=== PATIENT | female | born 1985 | race Caucasian/White ===

== ENCOUNTER 2017-07-18 09:21 | Emergency (ER) | END 2017-07-18 14:36 | disposition home or self-care (01) | CPT/HCPCS: 36415; 71275; 74174; 76705; 80053; 81003; 81025; 83690; 85025; 93005; 96360; 96361; 99283; 99284; A9270; Q9967 ==

== ENCOUNTER 2020-01-18 11:27 | Emergency (ER) | payer OTHER ==
--- NOTE | 2020-01-18 11:59 | ED Physician Documentation ---
PD HPI CHEST PAIN - Stated complaint Stated Complaint: CHEST PX - Chief complaint Chief Complaint: Cardiac - History obtained from History obtained from: Patient - History of Present Illness Timing - onset: How many days ago (few) Timing - onset during: Light activity Timing - duration: Days (few) Timing - details: Gradual onset, Still present, Waxing and waning Quality: Aching, Sharp Location: Left chest Radiation: No: Neck, Back, Abdominal Improved by: No: Rest, Antacids Worsened by: No: Exertion, Inspiration, Movement, Palpation Associated symptoms: No: Shortness of air, Nausea, Vomiting, Palpitations (Has history of brief SVT episodes, usually respond to Valsalva maneurvers. Has not had that today nor yesterday.) Similar symptoms before: No diagnosis (similar pains at times for a day or so. No Dx.) Review of Systems Constitutional: denies: Fever, Chills Nose: denies: Rhinorrhea / runny nose, Congestion Throat: denies: Sore throat Cardiac: reports: Chest pain / pressure. 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 ) Respiratory: None Neuro: None Endocrine/Autoimmune: None - Past Surgical History Past Surgical History: Yes - Present Medications Home Medications: Ambulatory Orders Medication Instructions Recorded Confirmed Naproxen [EC-Naproxen] 500 mg PO BID #20 tablet. 01/18/20 - Allergies Allergies/Adverse Reactions: Allergies Allergy/AdvReac Type Severity Reaction Status Date / Time No Known Drug Allergies Allergy Verified 07/18/17 09:34 - Living Situation Living Situation: reports: With family Living Arrangement: reports: At home - Social History Does the pt smoke?: Yes Smoking Status: Current every day smoker Does the pt drink ETOH?: Yes Does the pt have substance abuse?: No - Immunizations Immunizations are current?: Yes - POLST Patient has POLST: No PD ED PE NORMAL - Vitals Vital signs reviewed: Yes - General General: Alert and oriented X 3, No acute distress, Well developed/nourished - HEENT HEENT: Pharynx benign - Neck Neck: Supple, no meningeal sign, No adenopathy - Cardiac Cardiac: RRR, No murmur - Respiratory Respiratory: Clear bilaterally, Other (no chestwall tenderness. No rash nor sores. ) - Abdomen Abdomen: Normal bowel sounds, Soft, Non tender, Non distended, No organomegaly - Back Back: No CVA TTP - Derm Derm: Normal color, Warm and dry - Extremities Extremities: No deformity, No tenderness to palpate - Neuro Neuro: Alert and oriented X 3, No motor deficit, Normal speech Results - Vitals Vitals: Vital Signs - 24 hr 01/18/20 01/18/20 01/18/20 11:32 11:44 13:56 Temperature 36.4 C L 37.1 C Heart Rate 65 67 60 Respiratory 16 16 18 Rate Blood Pressure 151/73 H 124/74 111/73 O2 Saturation 100 100 100 Oxygen O2 Source Room air - EKG (time done) 11:34 Rate: Rate (enter#) (66) Rhythm: NSR [place]: Normal Intervals: Normal CO QRS: Normal Ischemia: Normal ST segments. No: ST elevation c/w ischemia, ST depression - Labs Labs: Laboratory Tests 01/18/20 01/18/20 01/18/20 11:55 11:55 11:55 WBC 7.5 RBC 4.52 Hgb 13.8 Hct 40.6 MCV 89.8 MCH 30.5 MCHC 34.0 RDW 11.7 L Plt Count 216 MPV 10.8 Neut # (Auto) 4.5 Lymph # (Auto) 2.1 [place] # (Auto) 0.6 Eos # (Auto) 0.2 Baso # (Auto) 0.1 Absolute Nucleated RBC 0.00 Nucleated RBC % 0.0 D-Dimer Sodium 137 Potassium 3.8 Chloride 101 Carbon Dioxide 27 Anion Gap 9.0 BUN 14 Creatinine 1.0 Estimated GFR (MDRD) 63 L Glucose 75 Calcium 9.6 Total Bilirubin 0.6 AST 23 ALT 20 Alkaline Phosphatase 60 Troponin I High Sens < 2.3 L C-Reactive Protein Total Protein 8.2 Albumin 4.6 Globulin 3.6 Albumin/Globulin Ratio 1.3 Lipase 56 H 01/18/20 01/18/20 11:55 11:55 WBC RBC Hgb Hct MCV MCH MCHC RDW Plt Count MPV Neut # (Auto) Lymph # (Auto) [place] # (Auto) Eos # (Auto) Baso # (Auto) Absolute Nucleated RBC Nucleated RBC % D-Dimer 257.0 H Sodium Potassium Chloride Carbon Dioxide Anion Gap BUN Creatinine Estimated GFR (MDRD) Glucose Calcium Total Bilirubin AST ALT Alkaline Phosphatase Troponin I High Sens C-Reactive Protein < 1.0 Total Protein Albumin Globulin Albumin/Globulin Ratio Lipase - Rads (name of study) chest xray Radiology: Prelim report reviewed (no acute process), See rad report PD MEDICAL DECISION MAKING - ED course Complexity details: reviewed results, considered differential (Left chest pain for couple of days without any particular pattern to it. EKG and chest x-ray are normal. Labs are essentially negative with out any signs of heart muscle injury electrolyte problems heart failure or autoimmune inflammatory problems. ), d/w patient Departure - Departure Disposition: 01 Home, Self Care Clinical Impression: Chest pain Qualifiers: Chest pain type: unspecified Qualified Code(s): R07.9 - Chest pain, unspecified Condition: Stable Record reviewed to determine appropriate education?: Yes Instructions: ED Chest Pain Costochondritis Follow-Up: LEO PEREZ DO [Primary Care Provider] - Prescriptions: Naproxen [EC-Naproxen] 500 mg PO BID #20 tablet. Comments: Your EKG and chest x-ray are normal. Your blood test to not show any signs of heart muscle injury/heart attack, heart failure, blood clots, significant inflammatory/immune process. At this point we would presume some musculoskeletal pain and treated with anti-inflammatories such as naproxen twice daily for 7 to 10 days with food. Add Tylenol if needed for pains. Recheck if not improved well over the next several days and resolved by 3 to 5 days. Return if worsening or other symptoms develop. Discharge Date/Time: 01/18/20 14:00
[2020-01-18 12:06] LABS: BASOPHILS # (AUTO) 0.1 10^3/uL (0.0-0.1); BASOPHILS % (AUTO) 0.7 %; EOSINOPHILS # (AUTO) 0.2 10^3/uL (0.0-0.7); HGB - HEMOGLOBIN 13.8 g/dL (12.0-16.0); LYMPHOCYTES # (AUTO) 2.1 10^3/uL (1.5-3.5); LYMPHOCYTES % (AUTO) 28.4 %; MEAN CORPUSCULAR HEMOGLOBIN 30.5 pg (27.0-31.0); MEAN CORPUSCULAR VOLUME 89.8 fL (81.0-99.0); MEAN PLATELET VOLUME 10.8 fL (7.9-10.8); MONOCYTES # (AUTO) 0.6 10^3/uL (0.0-1.0); NEUTROPHILS # (AUTO) 4.5 10^3/uL (1.5-6.6); NEUTROPHILS % (AUTO) 60.6 %; PLT - PLATELET COUNT 216 10^3/uL (130-450); RED BLOOD COUNT 4.52 10^6/uL (4.20-5.40); RED CELL DISTRIBUTION WIDTH 11.7 % (12.0-15.0); WHITE BLOOD COUNT 7.5 x10^3/uL (4.8-10.8)
[2020-01-18 12:16] LABS: ALBUMIN 4.6 g/dL (3.2-5.5); ALBUMIN/GLOBULIN RATIO 1.3 (1.0-2.2); BILIRUBIN,TOTAL 0.6 mg/dL (0.2-1.0); CALCIUM 9.6 mg/dL (8.5-10.3); TOTAL PROTEIN 8.2 g/dL (6.7-8.2)
--- NOTE | 2020-01-18 12:20 | XRAY Report ---
PROCEDURE: Chest 1 View X-Ray INDICATIONS: Chest pain TECHNIQUE: One view of the chest was acquired. COMPARISON: CTA chest 07/18/2017 FINDINGS: Surgical changes and devices: None. Lungs and pleura: No pleural effusions or pneumothorax. Lungs are clear. Mediastinum: Mediastinal contours appear normal. Heart size is normal. Bones and chest wall: No suspicious bony lesions. Overlying soft tissues appear unremarkable. IMPRESSION: No acute cardiopulmonary disease process. Reviewed by: Elisha Wallace MD, PhD on 01/18/2020 12:19 PM [facility] Approved by: Elisha Wallace MD, PhD on 01/18/2020 12:19 PM [facility] Station ID: [id number]
[2020-01-18] MEDS ORDERED: KETOROLAC 15 MG/ML VIAL IVP STA (12:45)
[2020-01-18 13:57] VITALS: BP 111/73
== END 2020-01-18 14:00 | disposition home or self-care (01) ==
LOC: ED 11:27
DX: R07.9 Chest pain, unspecified (principal); F17.200 Nicotine dependence, unspecified, uncomplicated; Z82.49 Family history of ischemic heart disease and other diseases of the circulatory system
CPT/HCPCS: 36415; 71045; 80053; 83690; 84484; 85025; 85379; 86140; 93005; 96374; 99284